=== PATIENT | male | born 1945 | race Caucasian/White ===

== ENCOUNTER 2021-02-13 15:41 | Emergency (ER) | payer OTHER, MEDICARE, SELFPAY ==
[2021-02-13] VITALS (10 sets, daily range): BP systolic 181–212; BP diastolic 88–108; PULSE 60–76; RESP 10–27; O2SAT 96–100
--- NOTE | 2021-02-13 15:46 | DI.CT.S_ITS ---
PROCEDURE: CT CERVICAL SPINE WO CON INDICATIONS: fall,head injury,on thinners TECHNIQUE: Noncontrast 3 mm thick sections acquired from the skull base to the T4 level. Sagittal and coronal reformats were then constructed. For radiation dose reduction, the following was used: automated exposure control, adjustment of mA and/or kV according to patient size. COMPARISON: None. FINDINGS: Image quality: Excellent. Bones: No fractures or dislocations. Visualized superior ribs are intact. Multilevel degenerative changes are present. There is trace retrolisthesis of C4 on C5, C5 on C6. Multilevel degenerative disc space narrowing is present as well as anterior osteophytes. Soft tissues: Prevertebral soft tissues are normal in thickness. No paravertebral hematomas. No apical pneumothoraces. IMPRESSION: Multilevel degenerative changes without fracture. Dictated by: Emiliana Galvez M.D. on 02/13/2021 at 16:40 Approved by: Emiliana Galvez M.D. on 02/13/2021 at 16:44
--- NOTE | 2021-02-13 15:46 | DI.CT.S_ITS ---
PROCEDURE: CT HEAD/BRAIN WO CON INDICATIONS: fall,head injury,on thinners TECHNIQUE: Noncontrast 4.5 mm thick angled axial sections acquired from the foramen magnum to the vertex, with coronal and sagittal reformats. For radiation dose reduction, the following was used: automated exposure control, adjustment of mA and/or kV according to patient size. COMPARISON: None. FINDINGS: Image quality: Excellent. CSF spaces: Basal cisterns are patent. No extra-axial fluid collections. The ventricles are symmetric in size and shape. Brain: No intracranial bleeds or masses. There is cerebral volume loss for age, with resultant ventricular and sulcal prominence. There are periventricular and deep white matter chronic small vessel ischemic changes. There is intracranial internal carotid artery atherosclerosis. Skull and face: There is a segmental, depressed left orbital floor fracture with associated hemorrhage filling the left maxillary sinus. There is left periorbital superficial hemorrhage. Sinuses: Visualized sinuses and mastoids are clear. IMPRESSION: 1. Segmental depressed left orbital floor fracture, superficial left periorbital hemorrhage. Please refer to a separate report for CT facial bone findings. 2. No evidence acute stroke, hemorrhage, or mass. No evidence of significant intracranial sequelae of acute trauma. Dictated by: Saeid Elmore M.D. on 02/13/2021 at 16:18 Approved by: Saeid Elmore M.D. on 02/13/2021 at 16:21
--- NOTE | 2021-02-13 15:49 | DI.CT.S_ITS ---
PROCEDURE: CT FACIAL BONES WO CON INDICATIONS: facial injury after fall TECHNIQUE: Noncontrast 2.5 mm thick axial images acquired from the mandible through the frontal sinuses, with coronal and sagittal reformatting. For radiation dose reduction, the following was used: automated exposure control, adjustment of mA and/or kV according to patient size. COMPARISON: None. FINDINGS: Image quality: Excellent. Bones and teeth: Blowout fracture of the left orbital floor. It is segmental, with a depressed fragment. No other orbital fractures no other facial fractures or mandibular fractures. Hemorrhage almost completely opacifies the left maxillary sinus. Nasal bones and septum are intact. Visualized portions of the mandible demonstrate no fractures or subluxation. Zygomatic arches are intact. Pterygoid plates are intact. Visualized portions of the skull base and auditory canals are intact. Sinuses: Paranasal sinuses are aerated, without fluid levels, mucosal thickening, or mucoceles. Mastoid air cells are aerated. Soft tissues: There is superficial left periorbital hematoma. The left globe is intact. There is left cheek laceration. Vascular: Visualized vascular structures appear normal in the absence of contrast. Bony vascular foramina and canals are intact. IMPRESSION: 1. Depressed blowout fracture of the left orbital floor. Associated left maxillary sinus hemorrhage. Left globe intact. 2. Left cheek laceration, left periorbital superficial hematoma. Dictated by: Saeid Elmore M.D. on 02/13/2021 at 16:21 Approved by: Saeid Elmore M.D. on 02/13/2021 at 16:25
--- NOTE | 2021-02-13 15:59 | ED_ITS ---
HPI - General Adult General Chief complaint: Trauma Stated complaint: fall while whale watching on ramp Time Seen by Provider: 02/13/21 15:49 Source: patient Mode of arrival: Ambulatory History of Present Illness HPI narrative: Patient is a 75-year-old male who arrived by private vehicle for evaluation of injuries that he sustained several hours ago. Patient states that he was at his normal state health. He was standing on the deck of his house on a ramp watching some whales swim by a when the railing that he was leaning against on the ramp/attack of his house broke. He fell reportedly 25 ft. He did hit his head. He is on Plavix and also Eliquis. He sustained injuries to his face and to his head. There was no loss of consciousness. Reports no extremity injuries. Reports no neck pain. He did have some bleeding from his h ead. One of his neighbors is a physician who came over and evaluated him and advised him to come to the emergency department. Prior to this event he did have a right-sided black eye from another event that occurred a couple days ago. Related Data Allergies Allergy/AdvReac Type Severity Reaction Status Date / Time codeine Allergy Verified 02/13/21 16:04 Sulfa (Sulfonamide Allergy Verified 02/13/21 16:04 Antibiotics) Review of Systems Constitutional Constitutional: Denies fatigue, Denies fever(s), Denies frequent falls and Denies headache(s) Eyes Comments: Already has a black right eye, has a new left black eye. Reports no vision changes. No eye pain. ENT Ears, Nose, Mouth, and Throat: Denies vertigo, Denies dizziness and Denies headache(s) Comments: No loose teeth or missing teeth, no jaw pain, does have discomfort left side of his face, no ear symptoms Cardiovascular Cardiovascular: Denies syncope Comments: Reports no chest pain, palpitations Respiratory Comments: Denies shortness of breath Gastrointestinal Comments: Denies abdominal discomfort, no nausea or vomiting, Genitourinary Comments: No urinary symptoms Musculoskeletal Comments: No neck pain, no arm pain, no hip pain, no leg pain, no back pain Integumentary/Breasts Comments: Bruising around his left eye, cuts to his head Neurologic Neurologic: Denies vertigo, Denies dizziness, Denies syncope, Denies frequent falls and Denies headache(s) Endocrine Endocrine: Denies fatigue Hematologic/Lymphatic On Anticoagulants: Yes Allergic/Immunologic Allergic/Immunologic: Reports system reviewed and no additional complaints, except as documented Patient History Medical History Atrial fibrillation Coronary artery disease Ventricular tachycardia Surgical History (Updated 02/14/21 @ 03:13 by Red Cordero DO) History of permanent cardiac pacemaker placement Social History (Updated 02/14/21 @ 03:13 by Red Cordero DO) marital status: lives independently: Yes Smoking Status: Unknown if ever smoked Exam Initial Vital Signs Initial Vital Signs: Vital Signs Pulse Rate 67 02/13/21 15:45 Respiratory Rate 14 02/13/21 15:45 Blood Pressure 211/108 H 02/13/21 15:45 Pulse Oximetry 98 02/13/21 15:45 Const General: cooperative, healthy appearing, comfortable, well developed, well groomed and No acute distress HENHI Head: abrasion Ears: hearing grossly normal bilaterally Nose: external nose normal, No epistaxis and No nasal discharge Face and sinus: laceration (3 cm laceration under left eye) Mouth: tongue normal and moist mucous membranes Teeth and gingiva: dentition normal Throat: posterior oropharynx normal Eyes Pupils: PERRL Other: Sclera the right eye is unremarkable, patient does have a subconjunctival hemorrhage on the inferior aspect both temporal and medial of the left eye. Patient reports to change in vision to both eyes. Extraocular muscles are intact Chest Chest: No crepitus and No tenderness Resp Effort & Inspection: normal respiratory effort Auscultation: clear to auscultation bilaterally Cardio Rate: regular rate Rhythm: regular rhythm GI Inspection: normal to inspection Palpation: soft, No firm, No guarding and No tender Back/Spine/Pelvis Cervical Spine: No cervical spinal tenderness Thoracic/Lumbar Spine: No thoracic spinal tenderness and No lumbar spinal tenderness Skin Other: Multiple abrasions throughout his head. No active bleeding. Patient does have a healing contusion under his eye. Has a new contusion around his left eye with a laceration under the left eye. Neuro General: patient alert, patient awake, patient oriented x3 and moves all extremities Cognition: normal cognition Speech: speech normal Motor: muscle tone normal throughout Sensory Exam: no sensory deficits noted Extrem General: normal to inspection and capillary refill normal Other: Pelvis is stable, full range of motion of bilateral upper extremities, Psych Appearance: grossly normal and well kempt Procedures FAST Exam FAST Exam 1: Fluid in Morison's pouch: No Fluid in Splenorenal Junction: No Fluid around bladder, Transverse view: No Fluid around bladder, Sagittal view: No Fluid in Pericardial Sac: No Gross Wall Motion Abnormality: No Study normal for this patient: Yes Images saved for further review: No Laceration Repair Laceration 1: Site: face Side (If applicable): right Size (cm): 3 Description: linear Depth: simple, single layer Local Anesthetic: lidocaine 1% and with epi Amount of anesthesia used (mL): 10 Pre-repair: wound explored, irrigated extensively and deep structures intact Skin layer closed with: other (Chromic) Size (cm): 5-0 Number of sutures: 8 Technique: simple, interrupted Scores GCS [place] coma scale eye opening: Spontaneous Johnnie coma scale verbal response: Orientated Johnnie coma scale motor response: Obey commands Johnnie coma scale total score: 15 Course Orders Ordered: ED Orders 02/13/21 15:46 CT cervical spine wo con Stat CT head/brain wo con Stat 02/13/21 15:49 CT facial bones wo con Stat 02/13/21 15:59 XR chest 1V Stat Medical Decision Making Lab Data Lab results reviewed: Yes I reviewed the patient's lab results. Result diagrams: 02/13/21 15:59 02/13/21 15:59 Labs: Lab Results 02/13/21 02/13/21 Range/Units 15:59 15:59 WBC 12.1 H (4.5-11.0) X10^3/uL RBC 4.54 (4.5-5.9) X10^6/uL Hgb 13.8 (13.5-17.5) g/dL Hct 41.7 (41-53) % MCV 91.8 (80-100) fL MCH 30.3 (26-34) PG MCHC 33.0 (30-36) % RDW 13.4 (11.6-14.8) % Plt Count 137 L (150-400) X10^3/uL Neut % (Auto) 75.0 (50-75) % Lymph % (Auto) 18.5 L (25-40) % Stearns % (Auto) 5.3 (3-14) % Eos % (Auto) 0.8 L (2-4) % Baso % (Auto) 0.4 (0-2) % Neut # (Auto) 9100 H (0349-5793) /uL Lymph # (Auto) 2200 (2408-5915) /uL Stearns # (Auto) 600 (0-900) /uL Eos # (Auto) 100 (0-450) /uL Baso # (Auto) 0 (0-100) /uL Sodium 139 (137-145) mmol/L Potassium 3.8 (3.4-5.1) mmol/L Chloride 103 (98-107) mmol/L Carbon Dioxide 31 (22-32) mmol/L BUN 20 (9-20) mg/dL Creatinine 0.98 (0.66-1.25) mg/dL Estimated GFR > 60.0 (>60) mL/min BUN/Creatinine Ratio 20.4 (6-22) Glucose 114 H (80-110) mg/dL Calcium 9.4 (8.4-10.2) mg/dL Total Bilirubin 1.3 (0.2-1.3) mg/dL AST 53 (17-59) IU/L ALT 26 (<50) IU/L Alkaline Phosphatase 64 (38-126) U/L Total Protein 7.9 (6.3-8.2) g/dL Albumin 4.7 (3.5-5.0) g/dL Globulin 3.2 (1.7-4.1) g/dL Albumin/Globulin Ratio 1.5 (1.0-2.8) Lipase 127 (23-300) U/L Imaging Data CT - cervical spine: Radiologist's Impression: [place] [address] CT Scan Report Signed Patient: Paul Johnston MR#: [id number] : 1945 Acct:[id number] Age/Sex: 75 / M Date of Service: 02/13/21 Loc: ED Accession Number: [id number] ?? Procedure: CT cervical spine wo con Ordering Provider: Red Cordero D.O. PROCEDURE:? CT CERVICAL SPINE WO CON ? INDICATIONS:? fall,head injury,on thinners ? TECHNIQUE:? Noncontrast 3 mm thick sections acquired from the skull base to the T4 level.? Sagittal and coronal reformats were then constructed.? For radiation dose reduction, the following was used:? automated exposure control, adjustment of mA and/or kV according to patient size.? ? COMPARISON:? None. ? FINDINGS:? Image quality:? Excellent.? ? Bones:? No fractures or dislocations.? Visualized superior ribs are intact.? Multilevel degenerative changes are present.? There is trace retrolisthesis of C4 on C5, C5 on C6.? Multilevel degenerative disc space narrowing is present as well as anterior osteophytes. ? Soft tissues:? Prevertebral soft tissues are normal in thickness.? No paravertebral hematomas.? No apical pneumothoraces.? ? ? IMPRESSION:? Multilevel degenerative changes without fracture. ? ? Dictated by: Emiliana Galvez M.D. on 02/13/2021 at 16:40 ? ? Approved by: Emiliana Galvez M.D. on 02/13/2021 at 16:44?? CT scan - head: Radiologist's Impression: [address] [address] [address] Scan Report Signed Patient: Paul Johnston MR#: [id number] : 1945 Acct:[id number] Age/Sex: 75 / M Date of Service: 02/13/21 Loc: ED Accession Number: [id number] ?? Procedure: CT head/brain wo con Ordering Provider: Red Cordero D.O. PROCEDURE:? CT HEAD/BRAIN WO CON ? INDICATIONS:? fall,head injury,on thinners ? TECHNIQUE:? Noncontrast 4.5 mm thick angled axial sections acquired from the foramen magnum to the vertex, with coronal and sagittal reformats.? For radiation dose reduction, the following was used:? automated exposure control, adjustment of mA and/or kV according to patient size.? ? COMPARISON:? None. ? FINDINGS:? Image quality:? Excellent.? ? CSF spaces:? Basal cisterns are patent.? No extra-axial fluid collections.? The ventricles are symmetric in size and shape.? ? Brain:? No intracranial bleeds or masses.? There is cerebral volume loss for age, with resultant ventricular and sulcal prominence.? There are periventricular and deep white matter chronic small vessel ischemic changes.? There is intracranial internal carotid artery atherosclerosis.? ? Skull and face:? There is a segmental, depressed left orbital floor fracture with associated hemorrhage filling the left maxillary sinus.? There is left periorbital superficial hemorrhage. ? Sinuses:? Visualized sinuses and mastoids are clear.? ? IMPRESSION:? ? 1. Segmental depressed left orbital floor fracture, superficial left periorbital hemorrhage.? Please refer to a separate report for CT facial bone findings. ? 2. No evidence acute stroke, hemorrhage, or mass.? No evidence of significant intracranial sequelae of acute trauma.? ? ? Dictated by: Saeid Elmore M.D. on 02/13/2021 at 16:18 ? ? Approved by: Saeid Elmore M.D. on 02/13/2021 at 16:21? facial CT: Radiologist's Impression: [place] [address] CT Scan Report Signed Patient: Paul Johnston MR#: [id number] : 1945 Acct:[id number] Age/Sex: 75 / M Date of Service: 02/13/21 Loc: ED Accession Number: [id number] ?? Procedure: CT facial bones wo con Ordering Provider: Red Cordero D.O. PROCEDURE:? CT FACIAL BONES WO CON ? INDICATIONS:? facial injury after fall ? TECHNIQUE:? Noncontrast 2.5 mm thick axial images acquired from the mandible through the frontal sinuses, with coronal and sagittal reformatting.? For radiation dose reduction, the following was used:? automated exposure control, adjustment of mA and/or kV according to patient size.? ? COMPARISON:? None. ? FINDINGS:? Image quality:? Excellent.? ? Bones and teeth:? Blowout fracture of the left orbital floor.? It is segmental, with a depressed fragment.? No other orbital fractures no other facial fractures or mandibular fractures.? Hemorrhage almost completely opacifies the left maxillary sinus.? Nasal bones and septum are intact.? Visualized portions of the mandible demonstrate no fractures or subluxation.? Zygomatic arches are intact.? Pterygoid plates are intact.? Visualized portions of the skull base and auditory canals are intact.? ? Sinuses:? Paranasal sinuses are aerated, without fluid levels, mucosal thickening, or mucoceles.? Mastoid air cells are aerated.? ? Soft tissues:? There is superficial left periorbital hematoma.? The left globe is intact. ?There is left cheek laceration. ? Vascular:? Visualized vascular structures appear normal in the absence of contrast.? Bony vascular foramina and canals are intact.? ? IMPRESSION:? ? 1. Depressed blowout fracture of the left orbital floor.? Associated left maxillary sinus hemorrhage.? Left globe intact. ? 2. Left cheek laceration, left periorbital superficial hematoma.? ? ? Dictated by: Saeid Elmore M.D. on 02/13/2021 at 16:21 ? ? Approved by: Saeid Elmore M.D. on 02/13/2021 at 16:25?? Chest x-ray: Radiologist's Impression: [address] [address] XRay Report Signed Patient: Paul Johnston MR#: [id number] : 1945 Acct:[id number] Age/Sex: 75 / M Date of Service: 02/13/21 Loc: ED Accession Number: [id number] ?? Procedure: XR chest 1V Ordering Provider: Red Cordero D.O. PROCEDURE:? XR CHEST 1V ? INDICATIONS:? trauma ? TECHNIQUE:? One view of the chest was acquired.? ? COMPARISON:? None. ? FINDINGS:? ? Surgical changes and devices:? Pacemaker. ? Lungs and pleura:? Mild appearance of increased pulmonary vascularity. ? Mediastinum:? Mediastinal contours appear normal.? Heart size is mildly enlarged. ? Bones and chest wall:? No suspicious bony lesions.? Overlying soft tissues appear unremarkable.? ? IMPRESSION:? Mild appearance of increased vascularity suggestive of edema. ? ? Dictated by: Emiliana Galvez M.D. on 02/13/2021 at 16:39 ? ? Approved by: Emiliana Galvez M.D. on 02/13/2021 at 16:39 MDM Narrative Medical decision making narrative: Patient is alert oriented x3. GCS 15. Is on anticoagulation. Patient describes no abdominal discomfort. His fast exam was negative. I feel that we can hold on any abdominal CT based on his physical exam. He has no extremity injuries. Is able to ambulate. I feel that we can hold on any extremity x-rays. His chest x-ray is unremarkable. Head CT is un remarkable, facial CT does show a left-sided inferior orbital fracture. He does not have any entrapment of the muscles of his left eye. But self appears well. His pupil was round. Low suspicion for open globe. He does have a subconjunctival hemorrhage on the left. Has a fairly significant contusion around his left eye most likely related to the fact that he is on anticoagulation. He has a laceration under his left eye. This was closed as described above. Patient was given instructions to follow-up with regard to the orbital fracture. He was given strict return precautions and follow-up instructions. He expressed understanding and agreement. Critical Care Time Critical Care Time Critical Care Time: Yes Total Critical Care Time: 35 Attestation: The high probability of a clinically significant, sudden or life threatening deterioration of the cardiovascular, abdominal, neurologic, ocular system(s) required my full and direct attention, intervention and personal management. The aggregate critical care time was 35 minutes. This time is in addition to time spent performing reported procedures but includes the following: [x] Data Review and interpretation [x] Patient assessment and monitoring of vital signs [x] Documentation [x] Medication orders and management Discharge Plan Departure Patient Disposition: Home Clinical Impression: Laceration of face, Fracture of orbital floor, Contusion of eye, left, Abrasion of skin of left elbow Instructions: Eye Contusion, DI for Orbital Fracture Activity Restrictions/Additional Instructions: The stitches are absorbable and should come out on their own. You can shower like normal. I also recommend putting ice over the left side of your face. Please contact Dr. Dumont at the number provided below for a follow-up. Return to the emergency department for any new or worsening symptoms Referrals: Felipe Dumont DMD [Physician] -
--- NOTE | 2021-02-13 15:59 | DI.RAD.S_ITS ---
PROCEDURE: XR CHEST 1V INDICATIONS: trauma TECHNIQUE: One view of the chest was acquired. COMPARISON: None. FINDINGS: Surgical changes and devices: Pacemaker. Lungs and pleura: Mild appearance of increased pulmonary vascularity. Mediastinum: Mediastinal contours appear normal. Heart size is mildly enlarged. Bones and chest wall: No suspicious bony lesions. Overlying soft tissues appear unremarkable. IMPRESSION: Mild appearance of increased vascularity suggestive of edema. Dictated by: Emiliana Galvez M.D. on 02/13/2021 at 16:39 Approved by: Emiliana Galvez M.D. on 02/13/2021 at 16:39
[2021-02-13] MEDS: LIDOCAINE 1% W/EPI 30 ML (16:04)
[2021-02-13 16:27] LABS: Add Manual Diff / Slide Review NO; Basophils Absolute Auto 0 /uL (0-100); Basophils Percent Auto 0.4 % (0-2); Eosinophils Absolute Auto 100 /uL (0-450); Eosinophils Percent Auto 0.8 % (2-4); Hematocrit 41.7 % (41-53); Hemoglobin 13.8 g/dL (13.5-17.5); Lymphocytes Absolute Auto 2200 /uL (1100-4500); Lymphocytes Percent Auto 18.5 % (25-40); Mean Corpuscular Hemoglobin 30.3 PG (26-34); Mean Corpuscular Volume 91.8 fL (80-100); Monocytes Absolute Auto 600 /uL (0-900); Monocytes Percent Auto 5.3 % (3-14); Neutrophils Absolute Auto 9100 /uL (1500-7000); Platelet Count 137 X10^3/uL (150-400); Red Blood Cell Count 4.54 X10^6/uL (4.5-5.9); Red Cell Distribution Width 13.4 % (11.6-14.8); White Blood Cell Count 12.1 X10^3/uL (4.5-11.0)
[2021-02-13 16:33] LABS: Alanine Aminotransferase 26 IU/L (<50); Albumin 4.7 g/dL (3.5-5.0); Albumin Globulin Ratio 1.5 (1.0-2.8); Alkaline Phosphatase 64 U/L (38-126); Aspartate Aminotransferase 53 IU/L (17-59); BUN Creatinine Ratio 20.4 (6-22); Bilirubin Total 1.3 mg/dL (0.2-1.3); Blood Urea Nitrogen 20 mg/dL (9-20); Calcium 9.4 mg/dL (8.4-10.2); Carbon Dioxide 31 mmol/L (22-32); Chloride 103 mmol/L (98-107); Estimated Glomerular Filt Rate > 60.0 mL/min (>60); Globulin 3.2 g/dL (1.7-4.1); Glucose 114 mg/dL (80-110); HEMOLYSIS 18 (0-50); Lipase 127 U/L (23-300); Potassium 3.8 mmol/L (3.4-5.1); Sodium 139 mmol/L (137-145); Total Protein 7.9 g/dL (6.3-8.2)
--- NOTE | 2021-02-13 18:20 | PC.NURSE ---
Dr Cordero in to suture pt's face. pt given instructions to skip tonights dose of eliquis and start again in the morning. LAC repaired with dissolvable sutures. tolerated well. instructed to f/u with Dr Dumont's office. Pt anxious to leave to catch flight back to [facility].
== END 2021-02-13 18:22 | disposition home or self-care (01) ==
PROVIDERS: Emergency Provider Emergency Medicine
DX: S02.32XA Fracture of orbital floor, left side, initial encounter for closed fracture (principal); S05.12XA Contusion of eyeball and orbital tissues, left eye, initial encounter; S01.112A Laceration without foreign body of left eyelid and periocular area, initial encounter; W17.89XA Other fall from one level to another, initial encounter; Y92.008 Other place in unspecified non-institutional (private) residence as the place of occurrence of the external cause
CPT/HCPCS: 12013; 36415; 70450; 70486; 71045; 72125; 80053; 83690; 85025; 99284